=== PATIENT | female | born 1970 | race Caucasian/White ===

== ENCOUNTER 2016-06-22 08:23 | Observation (INO) | payer OTHER ==
[2016-06-22] MEDS ORDERED: LEXISCAN ONE (10:29)
--- NOTE | 2016-06-22 13:16 | Diag Imaging Result Document ---
PROCEDURE NAME: MYOCARDIAL PERF SCAN, STR/REST - 06/22/2016 PROCEDURE: Rest-stress walking Lexiscan myocardial perfusion study. REQUESTING DOCTOR: Dr. Ortega; Santosh Finney MD INDICATION: Patient with metabolic syndrome, hypertension, diabetes, a strong family history of coronary heart disease complaining of chest discomfort. DESCRIPTION: The patient came into the nuclear lab on 06/22/2016, received a rest injection of technetium-99 sestamibi 12.6 mCi. Multiple tomographic views of the cardiac structure were obtained at rest. Patient underwent a walking Lexiscan protocol. 0.4 mg of Lexiscan was injected, and at peak infusion, patient received 35.9 mCi of technetium-99 sestamibi. Multiple tomographic views of the cardiac structure were obtained following the completion of the protocol. SUMMARY OF THE ELECTROCARDIOGRAPHIC PORTION OF THE STUDY: Resting electrocardiogram shows sinus rhythm, rate 78 beats per minute. Resting blood pressure 138/84. Resting ECG shows a nonspecific T-wave change in inferior leads. During the exercise protocol, the heart rate increased to a maximum of 146 beats per minute. At peak infusion, there were episodes of ventricular couplets with a suspicious T-wave abnormality in the inferior leads. At that time, the patient reported chest pressure of moderate severity. Maximum severity was 6/10. Following the completion of the infusion, the patient continued to complain of discomfort in the chest, and the EKG showed a very deep T-wave inversion in leads III and aVF and also some exaggeration of baseline abnormality in the lateral leads, V4, V5, and V6. SUMMARY: The electrocardiographic response to a walking Lexiscan protocol is deemed to be abnormal. The patient reported moderate chest discomfort, and there were electrocardiographic changes suspicious for ischemia. SUMMARY OF THE MYOCARDIAL PERFUSION PORTION OF THE STUDY: Poststress tomographic views of the left ventricle showed a severe extensive anteroseptal defect. This defect spans almost the entire anteroseptal segment of the left ventricle. The rest images showed complete reversibility of this defect. The polar plots revealed that there is scintigraphic evidence of an extensive defect involving the anteroseptal region of the left ventricle consistent with severe coronary artery disease probably involving the proximal LAD. Gated SPECT shows normal left ventricular systolic function, ejection fraction estimated at 89%, with normal ventricular volumes. No wall motion abnormality. Lung/heart ratio is normal. TID is normal. SUMMARY: This study showed: 1. Abnormal electrocardiographic response to exercise. The patient reported significant chest discomfort. There were ventricular couplets and ischemic changes at the level of the inferolateral wall of the left ventricle during the pharmacological ECG portion of the test. 2. Abnormal poststress myocardial perfusion scan. There is a scintigraphic suggestion of extensive inducible ischemia involving the anteroseptal region of the left ventricle. 3. Normal left ventricular systolic function, ejection fraction estimated at 89% with normal ventricular volumes. No wall motion abnormality. 4. This study indicates markedly increased risk for ischemic events. 5. Clinical correlation recommended.
[2016-06-22] MEDS: NITROGLYCERIN TD SCH ×3 (13:25→20:11)
--- NOTE | 2016-06-22 13:42 | EKG Report ---
Test Performed on : 06/22/2016 1:30:37 PM Test Reason : [place] Blood Pressure : / mmHG Vent. Rate : 087 BPM Atrial Rate : 087 BPM P-R Int : 144 ms QRS Dur : 090 ms QT Int : 388 ms P-R-T Axes : 032 009 027 degrees QTc Int : 466 ms Normal sinus rhythm. Cannot rule out Inferior infarct , age undetermined Abnormal ECG No previous ECGs available Confirmed by Hao Luna MD ([id number]) on 06/22/2016 9:57:33 PM
--- NOTE | 2016-06-22 14:00 | Diag Imaging Result Document ---
PROCEDURE NAME: HEART WITH CALCIUM SCORING - 06/22/2016 CT HEART WITH CALCIUM SCORING: FINDINGS: The total calcium score is 16.9. This is in the mild calcification range of 11-100. The visualized lungs near the heart appear clear except for mild dependent atelectasis. The visualized mediastinum near the heart is unremarkable. IMPRESSION: Total calcium score of 16.9, which is in the mild calcification range of 11-100.
[2016-06-22 14:14] LABS: MANUAL DIFF NEEDED? NO
[2016-06-22 14:18] LABS: BASO% 0.5 % (0.0-0.8); EOS# 0.37 X1000 (0.0-0.7); EOS% 3.7 % (0.0-10.0); HEMATOCRIT 39.8 % (37.0-47.0); HEMOGLOBIN 14.2 g/dL (12.0-16.0); IMM GRAN# 0.02 X1000 (0.0-0.04); IMM GRAN% 0.2 % (0.0-0.5); LYMPH# 1.56 X1000 (1.2-3.4); LYMPH% 15.8 % (20.5-51.1); MCH 29.5 PG (27-31); MCHC 35.7 g/dL (33-37); MCV 82.6 FL (81-99); MONO# 0.84 X1000 (0.11-0.59); MONO% 8.5 % (1.7-9.3); MPV 10.1 FL (7.4-10.4); NEUT% 71.3 % (42.2-75.2); PLT 293 X1000 (130-400); RBC 4.82 XMIL (4.2-5.4)
[2016-06-22] MEDS: LOVENOX SUBQ SCH (14:21)
[2016-06-22] MEDS ORDERED: PATIENT'S OWN MED PO SCH (14:30)
[2016-06-22] MEDS ORDERED: PRILOSEC PO SCH (14:30)
[2016-06-22] MEDS ORDERED: ASPIRIN PO SCH (14:30)
[2016-06-22 14:46] LABS: AGAP 21; ALBUMIN 4.2 g/dL (3.5-5.0); ALKALINE PHOSPHATASE 45 U/L (32-104); BUN 10 mg/dL (8-22); CALCIUM 9.5 mg/dL (8.8-10.2); CHLORIDE 99 mmol/L (98-107); CK PROFILE 63 U/L (24-173); COSMO 284; GOT 21 U/L (10-30); GPT 22 U/L (10-36); POTASSIUM 3.7 mmol/L (3.5-5.1); SODIUM 139 mmol/L (136-145); TCO2 19 mmol/L (25-35); TOTAL BILIRUBIN 0.28 mg/dL (0.20-1.00); TOTAL PROTEIN 7.5 g/dL (6.3-8.3)
[2016-06-22] MEDS: TYLENOL PO PRN ×3 (14:49→22:50)
--- NOTE | 2016-06-22 15:29 | Diag Imaging Result Document ---
PROCEDURE NAME: CHEST-2 VIEWS - 06/22/2016 CHEST X-RAY 2 VIEWS: COMPARISON: 11/04/2011. FINDINGS: The lungs are normally expanded and clear. Heart size and mediastinal contours are normal. No pneumothorax or pleural effusion. IMPRESSION: Negative exam.
[2016-06-22] MEDS: TOPROL XL PO SCH ×2 (15:38→20:11)
[2016-06-22] MEDS: CARAFATE PO SCH ×2 (15:41→20:11)
--- NOTE | 2016-06-22 16:54 | HISTORY AND PHYSICAL ---
CHIEF COMPLAINT: Chest pain. HISTORY: [id number]-old female patient of Dr. Elver Ortega presented to my office for evaluation on 06/16/2016. At that time, she reported having episodes what she described as chest discomfort that had been ongoing for about four months, typically happening about an hour after eating in the evening. She described gas-like pressure in the center of her chest radiating to her shoulder blades, as if somebody had "clamped the esophagus". Somewhat better after burping. She had occasional sensation of palpitations. Of note, she had experienced also some of these episodes when walking. The patient denies having dyspnea or syncope. The patient had lost some weight in the past two years. The patient came into the stress lab today and walked on the treadmill utilizing a modified exercise protocol along with infusion of Lexiscan. During the study, the patient reported significant chest discomfort. The ECG tracing was abnormal indicating the presence of ventricular couplets. Following the exercise portion of the study, she continued to have chest discomfort, initially from 6/10 in intensity at maximum pain down to 2/10 in intensity that continued for several moments. Her perfusion images were reviewed and they are markedly abnormal indicating a large area of postexercise defect involving the anteroseptal segment of the left ventricle. That would correspond to probably the distribution of the main LAD. That suggests that the LAD may be blocked right after the origin of one of the major diagonal branch. The ejection fraction is preserved. No scar is present. PAST MEDICAL HISTORY: Her past history is positive for hypertension, history of diabetes mellitus. She has metabolic syndrome. She has hyperlipidemia. The patient reported having gestational diabetes. SURGICAL HISTORY: Positive for uterine ablation, tubal ligation, cyst removed from the breast, and wisdom teeth removed. SOCIAL HISTORY: She is . She has two children. 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 She is not a smoker, not a drinker. REVIEW OF SYSTEMS: Besides what I have reported, no other significant abnormality. HOME MEDICATIONS: Home medications listed at the time of this admission included Pepcid 40 mg daily, Jardiance 25 mg daily, Dexilant 60 mg daily, sitagliptin/metformin ( Janumet) one tablet twice a day, cetirizine 10 mg at bedtime, aspirin 81 mg daily, amlodipine 5 mg daily, metoprolol 60 twice a day, simvastatin 40 mg at bedtime. ALLERGIES: No reported allergies. FAMILY HISTORY: Family history is strongly positive. Four grandparents have coronary heart disease. PHYSICAL EXAMINATION: VITAL SIGNS: Blood pressure 131/91, temperature of 98.5, pulse 93, respirations 22. GENERAL: Awake, alert, oriented, no distress. HEENT: Unremarkable. CHEST: Clear to auscultation and percussion. CARDIOVASCULAR: Heart sounds regular and rhythmic. No gallop or murmur. ABDOMEN: Nontender. EXTREMITIES: Extremities showed good pulses. No edema. NEUROLOGIC: She moves four extremities. LABORATORY: Blood work today: Sodium 139, potassium 3.7, BUN 10, creatinine 0.6. White count is 9890, hemoglobin 14.2, hematocrit 39.8. IMPRESSION: 1. Patient presenting with relatively short-term history of what appears to be atypical chest discomfort; however, her myocardial perfusion stress test and her ECG response to the exercise performed today is very abnormal suggesting the presence of severe obstructive coronary artery disease.After the stress study was completed ,she continued to have chest discomfort with abnormal 12 lead ECG suggesting that she may be developing unstable angina pectoris type of clinical picture. 2. Metabolic syndrome. 3. Hypertension. 4. Diabetes. 5. History of obesity. RECOMMENDATIONS: Patient is being admitted to the hospital for stabilization following the abnormal stress test. We are putting her on enoxaparin 1 mg per kg twice a day , nitroglycerin paste. We are putting her on beta blockers, nitrates. Continue her calcium blockers. We will arrange for an invasive cardiac evaluation. [facility] has been contacted, specifically Dr. Shay Miranda, with whom I discussed the case, and he is willing to proceed with coronary angiography and possibly intervention tomorrow, 06/23/2016. The benefits, risks , complications of cardiac catheterization and coronary intervention were discussed with the patient and the at length. They are in agreement to proceed. Arrangements are being made at the present moment to transfer the patient to [place]. Thank you very much for the opportunity to participate in her evaluation. [facility]
[2016-06-22] MEDS ORDERED: PEPCID PO SCH (17:00)
[2016-06-22] MEDS: NORVASC PO SCH ×2 (17:11→17:18)
[2016-06-22] MEDS ORDERED: JANUVIA PO SCH (21:00)
[2016-06-22] MEDS ORDERED: ZYRTEC PO SCH (21:00)
[2016-06-22] MEDS ORDERED: GLUCOPHAGE PO SCH (21:00)
[2016-06-22] MEDS ORDERED: ZOCOR PO SCH (21:00)
[2016-06-23] MEDS: LOVENOX SUBQ SCH (02:32)
[2016-06-23 04:16] VITALS: BP 105/64
--- NOTE | 2016-06-23 06:25 | EKG Report ---
Test Performed on : 06/22/2016 11:18:33 PM Test Reason : [place] Blood Pressure : / mmHG Vent. Rate : 070 BPM Atrial Rate : 070 BPM P-R Int : 138 ms QRS Dur : 090 ms QT Int : 438 ms P-R-T Axes : 050 051 064 degrees QTc Int : 473 ms Normal sinus rhythm. Normal ECG When compared with ECG of 22-JUN-2016 13:30, Minimal criteria for Inferior infarct are no longer present Confirmed by Hao Luna MD ([id number]) on 06/23/2016 9:47:28 AM
[2016-06-23] MEDS: CARAFATE PO SCH (06:28)
--- NOTE | 2016-06-23 07:31 | EKG Report ---
Test Performed on : 06/23/2016 07:04:38 AM Test Reason : [place] Blood Pressure : / mmHG Vent. Rate : 076 BPM Atrial Rate : 076 BPM P-R Int : 140 ms QRS Dur : 088 ms QT Int : 412 ms P-R-T Axes : 024 006 020 degrees QTc Int : 463 ms Normal sinus rhythm. Normal ECG When compared with ECG of 22-JUN-2016 23:18, T wave inversion now evident in Inferior leads Unconfirmed Result
--- NOTE | 2016-06-23 12:50 | DISCHARGE SUMMARY ---
ADMISSION DATE: 06/22/2016 DISCHARGE DATE: 06/23/2016 CHIEF COMPLAINT: Chest pain. HISTORY: The patient was admitted on June 22 following an abnormal stress test. The patient complained of chest discomfort while doing the stress test and after the termination of the study, her electrocardiogram showed ischemic changes and her perfusion images were markedly abnormal. The patient was deemed to be unstable. HOSPITAL COURSE: She was admitted to the hospital and put on enoxaparin and nitroglycerine paste. In addition, she was continued on beta blockers that she had been taking as well as calcium blockers. During the hospital stay 3 sets of troponin levels were obtained, one at 2:08 p.m., another one at 9 p.m. and the final at 5:10 a.m. on June 23. All of them were negative. Her glucose level was 145 on June 23. Her electrolytes except for the carbon dioxide were all normal. Her hemoglobin and platelet count were normal. The patient had an uneventful night. Electrocardiogram was done at 7 a.m. on June 23. It was normal. She had no further chest pains. A phone call was placed with [facility] on the evening of June 22 and they accepted the patient on transfer. The patient was transferred to [facility] on the morning of June 23 for purposes of cardiac catheterization and hopefully percutaneous intervention. The patient left the hospital in a stable condition. Prognosis is at this point in time somewhat guarded because of the abnormal stress test. DISCHARGE DIAGNOSES: 1. Unstable angina pectoris with markedly abnormal stress test following a myocardial perfusion Lexiscan study. 2. History of metabolic syndrome. 3. History of hypertension. 4. History of hyperlipidemia. No special procedures were performed during this admission other than observation in the stepdown unit and further intervention is going to be provided at [facility]. Please refer to the dictated history and physical for more details.
== END 2016-06-23 08:00 | disposition short-term general hospital (02) ==
LOC: CT 08:23 → 3S 12:52
PROVIDERS: ADMIT Internal Medicine Cardiovascular Disease; ATTEND Internal Medicine Cardiovascular Disease
DX: I20.0 Unstable angina (principal); R94.39 Abnormal result of other cardiovascular function study; R07.89 Other chest pain; I10 Essential (primary) hypertension; E88.81 Metabolic syndrome and other insulin resistance; E11.9 Type 2 diabetes mellitus without complications; E78.5 Hyperlipidemia, unspecified; Z82.49 Family history of ischemic heart disease and other diseases of the circulatory system; Z79.899 Other long term (current) drug therapy; Z86.32 Personal history of gestational diabetes; Z79.84 Long term (current) use of oral hypoglycemic drugs; Z79.82 Long term (current) use of aspirin
CPT/HCPCS: 71020; 78452; 80053; 80061; 82550; 82948; 83721; 84484; 85025; 93005; 93010; 93017; A9500; J1650